=== PATIENT | female | born 1995 | race Caucasian/White ===

== ENCOUNTER 2022-05-17 11:41 | Emergency (ER) | payer OTHER ==
[2022-05-17 11:50] VITALS: BP 103/69; PULSE 83; RESP 18; TEMP 98.5; BMI 31.2
[2022-05-17] MEDS ORDERED: ALBUTEROL SO4 2.5/IPRATROPIUM 0.5 INH SOL 3 ML VIAL.NEB. NEB ONE ×2 (12:42→13:09)
[2022-05-17] MEDS ORDERED: predniSONE 20 MG TABLET (UD) PO ONE (12:48)
[2022-05-17] MEDS ORDERED: predniSONE 20 MG TABLET (UD) ONE (13:10)
== END 2022-05-17 14:13 | disposition home or self-care (01) ==
LOC: JER 11:41
PROC: 3E0F7GC Introduction of Other Therapeutic Substance into Respiratory Tract, Via Natural or Artificial Opening (ICD-10-PCS; principal; 2022-05-17)
DX: J45.901 Unspecified asthma with (acute) exacerbation (principal); R05.1 Acute cough
CPT/HCPCS: 0241U-QW; 71046-TC-FY; 99284-25